=== PATIENT | female | born 1990 | race Caucasian/White ===

== ENCOUNTER 2016-03-01 10:12 | Emergency (ER) | payer OTHER ==
[~2016-03-01] VITALS: Ht 162.6 cm; Wt 90.0 kg
[~2016-03-01 10:12] MED LIST: CARAS PO; CIPR500T4 PO; PANT40TA3 PO; SENN-36 PO; ULT50 PO
[2016-03-01 10:17] VITALS: Ht 162.6 cm; Wt 90.0 kg
[2016-03-01] MEDS ORDERED: BELLADONNA/PHENOBARBITAL TAB PO STA (10:44)
[2016-03-01] MEDS ORDERED: ONDANSETRON 4 MG INJ IV STA (10:44)
--- NOTE | 2016-03-01 10:56 | ERD ---
ER Documentation Chief Complaint Date/Time DATE: 03/01/16 TIME: 10:54 Chief Complaint MID ABD PAIN WITH VOMITING SINCE MORNING HPI This is a 25-year-old female presents to the ER with epigastric pain that started yesterday. Per patient epigastric pain has gotten significantly worse and she has nausea and vomiting. Vomiting is nonbilious nonbloody. Patient states that her stools were soft this morning however denies diarrhea. Patient has had this in the past and was told she had an infection. Patient's pain does not radiate anywhere it feels as if someone is "punching her" patient denies any fevers or chills. She denies any urinary frequency or dysuria. Patient has not tried anything for the pain. Her appetite has been decreased. There are no sick contacts at home ROS 12 point review of systems was done, all negative except per HPI. Medications Home Meds Active Scripts Tramadol HCl (Tramadol HCl) 50 Mg Tablet, 50 MG PO Q6 Y for PAIN, #10 TAB Prov:SEYMOUR FISHER 03/01/16 Tramadol Hcl* (Tramadol* ER) 100 Mg Tab.er.24h, 100 MG PO DAILY, #30 TAB Prov:SEYMOUR FISHER 03/01/16 Ondansetron Hcl* (Zofran*) 4 Mg Tablet, 4 MG PO Q6H for NAUSEA AND/OR VOMITING, #30 TAB Prov:SEYMOUR FISHER 03/01/16 Famotidine* (Pepcid*) 20 Mg Tablet, 20 MG PO BID for 14 Days, TAB Prov:SEYMOUR FISHER 03/01/16 Tramadol HCl (Tramadol HCl) 50 Mg Tablet, 50 MG PO Q6H Y for PAIN, #20 TAB Prov:NICO ACOSTA 05/26/15 Sennosides* (Senokot*) 1 Tab Tab, 2 TAB PO BID for 20 Days, TAB Prov:NICO ACOSTA 05/26/15 Sucralfate* (Carafate* (Pediatric)) 1 Gm/10 Ml Susp, 1 GM PO QID for 30 Days Prov:NICO ACOSTA 05/26/15 Pantoprazole* (Protonix*) 40 Mg Tablet.dr, 40 MG PO BID for 30 Days, TAB Prov:NICO ACOSTA 05/26/15 Ciprofloxacin Hcl* (Ciprofloxacin Hcl*) 500 Mg Tablet, 500 MG PO BID for 7 Days , TAB Prov:NICO ACOSTA 05/26/15 Allergies Allergies: Coded Allergies: No Known Allergy (Unverified , 05/22/15) PMhx/Soc History of Surgery: Yes (2 C-sections, gallstones removed) Anesthesia Reaction: No Hx Neurological Disorder: No Hx Respiratory Disorders: No Hx Cardiac Disorders: No Hx Psychiatric Problems: No Hx Alcohol Use: No Hx Substance Use: No Hx Tobacco Use: No Physical Exam Vitals Vital Signs Date Time Temp Pulse Resp B/P Pulse Ox O2 Delivery O2 Flow Rate FiO2 03/01/16 10:17 98.1 78 20 104/54 98 Physical Exam GENERAL: The patient is well developed and appropriate for usual state of health , in no apparent distress. HEENT: Atraumatic. CHEST: Clear to auscultation bilaterally. There are no rales, wheezes or rhonchi. HEART: Regular rate and rhythm. No murmurs, clicks, rubs or gallops. ABDOMEN: Soft, nontender and nondistended. Good bowel sounds. No rebound or guarding. No gross peritonitis. No gross organomegaly or masses. No Elkins sign or McBurney point tenderness. Tender to palpation in the epigastric area BACK: No CVA tenderness EXTREMITIES: Full range of motion. Grossly neurovascularly intact. NEURO: Alert and oriented. Result Diagram: 03/01/16 1113 03/01/16 1113 Results 24 hrs Laboratory Tests Test 03/01/16 11:13 Alanine Aminotransferase (ALT/SGPT) 28IU/L Albumin 4.0g/dl Albumin/Globulin Ratio 0.97 Alkaline Phosphatase 105IU/L Anion Gap 17 Aspartate Amino Transf (AST/SGOT) 33IU/L Basophils # 0.010^3/ul Basophils % 0.3% Blood Urea Nitrogen 10mg/dl Calcium Level 8.4mg/dl Carbon Dioxide Level 24mmol/L Chloride Level 104mmol/L Creatinine 0.57mg/dl Direct Bilirubin 0.00mg/dl Eosinophils # 0.110^3/ul Eosinophils % 0.8% Globulin 4.10g/dl Glucose Level 109mg/dl Hematocrit 39.1% Hemoglobin 13.1g/dl Indirect Bilirubin 0.5mg/dl Lipase 65U/L Lymphocytes # 1.110^3/ul Lymphocytes % 14.0% Mean Corpuscular Hemoglobin 30.6pg Mean Corpuscular Hemoglobin Concent 33.5g/dl Mean Corpuscular Volume 91.4fl Mean Platelet Volume 9.7fl Monocytes # 0.410^3/ul Monocytes % 4.7% Neutrophils # 6.410^3/ul Neutrophils % 80.2% Nucleated Red Blood Cells # 0.010^3/ul Nucleated Red Blood Cells % 0.0/100WBC Platelet Count 72569^3/UL Potassium Level 3.8mmol/L Red Blood Count 4.2810^6/ul Red Cell Distribution Width 13.1% Sodium Level 141mmol/L Total Bilirubin 0.5mg/dl Total Protein 8.1g/dl Urine Bacteria FEW Urine Bilirubin NEGATIVE Urine Clarity CLEAR Urine Color LT. YELLOW Urine Epithelial Cells FEW Urine Glucose NEGATIVE% Urine Hemoglobin 3+ Urine Ketones NEGATIVE Urine Leukocyte Esterase TRACE Urine Microscopic RBC 5-10/HPF Urine Microscopic WBC 0-2/HPF Urine Nitrite NEGATIVE Urine Specific [place] 1.025 Urine Total Protein NEGATIVE Urine Urobilinogen 0.2 E.U./dL Urine pH 5.5 White Blood Count 8.010^3/ul Current Medications Medications (Trade) Dose Ordered Sig/Davy Route PRN Reason Start Time Stop Time Status Last Admin Dose Admin Famotidine (Pepcid Iv) 20 mg ONCE ONCE IV 03/01/16 11:00 03/01/16 11:01 DC 03/01/16 11:16 Ondansetron HCl 4 mg 4 mg ONCE STAT IV 03/01/16 10:44 03/01/16 10:47 DC 03/01/16 11:16 Sodium Chloride (NS) 1,000 ml @ 1,000 mls/hr Q1H ONCE IV 03/01/16 11:00 03/01/16 11:59 DC 03/01/16 11:15 Miscellaneous Medication (Gi Cocktail (2)) 40 ml ONCE ONCE PO 03/01/16 11:00 03/01/16 11:01 DC 03/01/16 11:16 Belladonna/ Phenobarbital () 2 tab ONCE STAT PO 03/01/16 10:44 03/01/16 10:47 DC 03/01/16 11:16 Procedures/MDM Differential Diagnosis: GERD, gastritis, peptic ulcer disease, pancreatitis, cholecystitis, choledocholithiasis, biliary colic, cholangitis, [id number] , ACS/MA, Pnuemonia . This is a 25-year-old female presents to the ER with epigastric pain. I doubt gallbladder disease as patient's gallbladder has already been taken out. I doubt pancreatitis as her lipase is normal. Patient' s is afebrile and well-appearing, she does not appear dehydrated. patient has denied chest pain shortness of breath I doubt cardiac or intrathoracic abnormality. Patient will be sent home with famotidine, tramadol, Zofran. She is to follow-up with her primary care doctor within 1-2 days return to ER sooner if symptoms worsen. My medical decision making shared with the patient understands and agrees with plan. Departure Diagnosis: Primary Impression: Epigastric pain Condition: Stable SEYMOUR FISHER Mar 01, 2016 10:56
[2016-03-01] MEDS ORDERED: FAMOTIDINE 20 MG INJ IV ONE (11:00)
[2016-03-01] MEDS ORDERED: LIDOCAINE/MYLANTA 40 ML BTL PO ONE (11:00)
[2016-03-01] MEDS ORDERED: SOD CHLORIDE 0.9% 1,000 ML IV ONE (11:00)
[2016-03-01 11:40] LABS: POTASSIUM 3.8 mmol/L (3.5-5.1)
[2016-03-01 11:42] LABS: ALBUMIN/GLOBULIN RATIO 0.97; BILIRUBIN,INDIRECT 0.5 mg/dl (0-1.1); BILIRUBIN,TOTAL 0.5 mg/dl (0.2-1.3); CREATININE 0.57 mg/dl (0.44-1.00); TOTAL PROTEIN 8.1 g/dl (6.1-8.1)
[2016-03-01 11:43] LABS: CALCIUM 8.4 mg/dl (8.4-10.2)
[2016-03-01 11:47] LABS: BASOPHILS % 0.3 % (0.0-2.0); EOSINOPHILS # 0.1 10^3/ul (0.0-0.5); EOSINOPHILS % 0.8 % (0.0-7.0); HEMATOCRIT 39.1 % (37.0-47.0); HEMOGLOBIN 13.1 g/dl (12.0-16.0); LYMPHOCYTES # 1.1 10^3/ul (0.8-2.9); MEAN CORPUSCULAR HEMOGLOBIN 30.6 pg (29.0-33.0); MEAN CORPUSCULAR HGB CONC 33.5 g/dl (32.0-37.0); MEAN CORPUSCULAR VOLUME 91.4 fl (82.0-101.0); MEAN PLATELET VOLUME 9.7 fl (7.4-10.4); MONOCYTE # 0.4 10^3/ul (0.3-0.9); MONOCYTES % 4.7 % (0.0-11.0); NEUTROPHIL # 6.4 10^3/ul (1.6-7.5); NEUTROPHILS % 80.2 % (39.0-77.0); PLATELET COUNT 214 10^3/UL (140-440); RED BLOOD COUNT 4.28 10^6/ul (4.20-5.40); RED CELL DISTRIBUTION WIDTH 13.1 % (11.5-14.5)
[2016-03-01 11:51] LABS: ADD UMIC YES; URINE BILIRUBIN (Dip) NEGATIVE (NEGATIVE); URINE BLOOD (Dip) 3+ (NEGATIVE); URINE COLOR LT. YELLOW (YELLOW); URINE GLUCOSE (Dip) NEGATIVE (NEGATIVE); URINE KETONES (Dip) NEGATIVE (NEGATIVE); URINE LEUKOCYTE ESTERASE (Dip) TRACE (NEGATIVE); URINE NITRITE (Dip) NEGATIVE (NEGATIVE); URINE TOTAL PROTEIN (Dip) NEGATIVE (NEGATIVE); URINE UROBILINOGEN (Dip) 0.2 E.U./dL (0.1-1.0)
[2016-03-01 11:55] LABS: CONDITION 1
[2016-03-01] MEDS ORDERED: FAMO-18 PO (12:46)
[2016-03-01] MEDS ORDERED: ONDA4TAB8 PO (12:46)
[2016-03-01] MEDS ORDERED: TRAM100T27 PO (12:47)
[2016-03-01] MEDS ORDERED: TRAM50TA2 PO (12:47)
[2016-03-01 12:50] LABS: BACTERIA,URINE FEW
== END 2016-03-01 13:08 | disposition home or self-care (01) ==
LOC: FTE 10:12
DX: R10.13 Epigastric pain (principal); R11.2 Nausea with vomiting, unspecified
CPT/HCPCS: 80053; 81001; 83690; 85025; J2405; J7030; Z7610; 36415; 81003; 96374; 96375

== ENCOUNTER 2016-05-17 22:22 | Emergency (ER) | payer OTHER ==
[~2016-05-17] VITALS: Ht 162.6 cm; Wt 92.0 kg
[~2016-05-17 22:22] MED LIST changes: +FAMO-18 PO; +ONDA4TAB8 PO; +TRAM100T27 PO; +TRAM50TA2 PO; -ULT50 PO
[2016-05-17 22:23] VITALS: Ht 162.6 cm; Wt 92.0 kg
[2016-05-18] MEDS ORDERED: ONDANSETRON (ODT) 4 MG TAB ODT STA (00:46)
[2016-05-18] MEDS ORDERED: DIAZEPAM 5 MG TAB PO ONE (01:00)
[2016-05-18] MEDS ORDERED: LIDOCAINE/MYLANTA 40 ML BTL PO ONE (01:00)
[2016-05-18] MEDS ORDERED: PANTOPRAZOLE (EC) 40 MG TAB PO ONE (01:00)
--- NOTE | 2016-05-18 01:31 | ERD ---
ER Documentation Chief Complaint Date/Time DATE: 05/18/16 TIME: 01:21 Chief Complaint ABDOMINAL PAIN WITH N/V STARTING TODAY HPI 25-year-old female presenting to emergency department today with epigastric pain since 11 AM. Patient reports the pain is sharp sharp and cramping. Patient reports nothing makes her stomach feel better, states she has not eaten today has drink green tea with little relief of symptoms. She reports nausea, denies vomiting, fever, chills. Denies diarrhea, dysuria. Patient reports history of gastritis and has a appointment with a industrial electrical engineer later this month. Patient currently has never tried any H2 arpit or proton pump inhibitor for symptoms. Patient denies shortness of breath, chest pain, palpitations, or dizziness. ROS All systems reviewed and are negative except as per history of present illness. Medications Home Meds Active Scripts Tramadol HCl (Tramadol HCl) 50 Mg Tablet, 50 MG PO Q6 Y for PAIN, #10 TAB Prov:SEYMOUR FISHER 03/01/16 Tramadol Hcl* (Tramadol* ER) 100 Mg Tab.er.24h, 100 MG PO DAILY, #30 TAB Prov:SEYMOUR FISHER 03/01/16 Ondansetron Hcl* (Zofran*) 4 Mg Tablet, 4 MG PO Q6H for NAUSEA AND/OR VOMITING, #30 TAB Prov:SEYMOUR FISHER 03/01/16 Famotidine* (Pepcid*) 20 Mg Tablet, 20 MG PO BID for 14 Days, TAB Prov:SEYMOUR FISHER 03/01/16 Tramadol HCl (Tramadol HCl) 50 Mg Tablet, 50 MG PO Q6H Y for PAIN, #20 TAB Prov:NICO ACOSTA 05/26/15 Sennosides* (Senokot*) 1 Tab Tab, 2 TAB PO BID for 20 Days, TAB Prov:NICO ACOSTA 05/26/15 Sucralfate* (Carafate* (Pediatric)) 1 Gm/10 Ml Susp, 1 GM PO QID for 30 Days Prov:NICO ACOSTA 05/26/15 Pantoprazole* (Protonix*) 40 Mg Tablet.dr, 40 MG PO BID for 30 Days, TAB Prov:NICO ACOSTA 05/26/15 Ciprofloxacin Hcl* (Ciprofloxacin Hcl*) 500 Mg Tablet, 500 MG PO BID for 7 Days , TAB Prov:NICO ACOSTA 05/26/15 Allergies Allergies: Coded Allergies: No Known Allergy (Unverified , 05/22/15) PMhx/Soc History of Surgery: Yes (2 C-sections, CHOLECYSTECTOMY) Anesthesia Reaction: No Hx Neurological Disorder: No Hx Respiratory Disorders: No Hx Cardiac Disorders: No Hx Psychiatric Problems: No Hx Alcohol Use: No Hx Substance Use: No Hx Tobacco Use: No Physical Exam Vitals Vital Signs Date Time Temp Pulse Resp B/P Pulse Ox O2 Delivery O2 Flow Rate FiO2 05/17/16 22:23 98.2 88 18 129/87 98 Vitals stable, triage notes reviewed Physical Exam Const: No acute distress Head: Eyes: Normal Conjunctiva no jaundice, pallor, EOMI, PERRLA ENT: Normal External Ears, Nose and Mouth. Mucous membranes moist Neck: Resp: Cardio: Abd: Obese abdomen, soft to palpation, dull to percussion. Epigastric tenderness, Elkins sign negative, nontender McBurney's point, no CVA tenderness Skin: Back: No midline or flank tenderness Ext: Neur: Awake and alert Psych: Normal Mood and Affect Results 24 hrs Current Medications Medications (Trade) Dose Ordered Sig/Davy Route PRN Reason Start Time Stop Time Status Last Admin Dose Admin Miscellaneous Medication (Gi Cocktail (2)) 40 ml ONCE ONCE PO 05/18/16 01:00 05/18/16 01:01 DC 05/18/16 01:10 Pantoprazole (Protonix Tab) 40 mg ONCE ONCE PO 05/18/16 01:00 05/18/16 01:01 DC 05/18/16 01:10 Ondansetron HCl (Zofran Odt) 4 mg ONCE STAT ODT 05/18/16 00:46 05/18/16 00:48 DC 05/18/16 01:11 Diazepam (Valium) 5 mg ONCE ONCE PO 05/18/16 01:00 05/18/16 01:01 DC 05/18/16 01:11 Procedures/MDM Pleasant 25-year-old female presenting to emergency department with epigastric pain, nausea without vomiting, differential diagnosis includes appendicitis, pancreatitis, cholelithiasis. Gastroesophageal reflux disease. Physical exam and history do not support appendicitis pancreatitis or cholelithiasis. Patient is nontender at McBurney's point. Pain isolated to epigastric region, negative Elkins sign. Peptic ulcer disease is probable, but without complaint of blood in stool will not be further investigated at this time. Patient has appointment with industrial electrical engineer for evaluation of gastritis. Nurse practitioner with treat symptoms today with GI cocktail, Valium, Protonix and Zofran. Patient reassessed after 60 minutes reports improvement in symptoms. I feel patient is suitable for outpatient management and follow-up with industrial electrical engineer as planned. Return to emergency room for blood in stool, worsening of abdominal pain, nausea or vomiting. I feel the patient is stable for discharge at this time. I have discussed results, examination findings, the treatment plan with the patient and family present prior to discharge. Indications for emergent reevaluation, side effects of medication were also discussed. All questions were answered. Patient verbalizes understanding and agrees with plan of care. Departure Patient Instructions: [facility] (Adult) Referrals: [facility] Additional Instructions: Thank you for for coming to [facility] for your care today. Please ask your nurse or provider if you have questions about your care today and do not leave until all your questions have been answered. Please use any medications given as directed and follow-up with your doctor (or the doctor you were referred to) in the next 2-3 days. If you do not have a primary care doctor you may follow up at the [facility] (listed below). You may also use motrin and tylenol as needed for fever and/or pain unless instructed otherwise by your provider or nurse. Indications for more urgent follow-up have been discussed, but you may return to the Emergency Department at ANY time for any worrisome or worsening symptoms. If you have abdominal pain, please know that no test or exam you received is perfect and you should follow up within 8 hours for continued pain. If you had any imaging studies today, such as an X-Ray or CT Scan, these studies will be reviewed later by a radiologist. You will be called if there are important findings that were not identified today, so make sure the contact information you provided at registration is correct. If you received any narcotic pain control medicine today, such as Vicodin, Morphine or Dilaudid, your coordination and judgment may be affected for a number of hours. Please do not drive or operate heavy machinery, and you may want someone to assist you at home. If you were given a prescription for narcotic medication, be aware that it is very addictive- use sparingly and only if necessary. VIVIAN CARLOS May 18, 2016 01:31
[2016-05-18] MEDS ORDERED: RANI150T9 PO (01:33)
[2016-05-18] MEDS ORDERED: ONDA4TAB14 PO (02:08)
[2016-05-18] MEDS ORDERED: HYDR-906 PO (02:08)
== END 2016-05-18 02:27 | disposition home or self-care (01) ==
LOC: FTE 22:22
DX: R10.13 Epigastric pain (principal); R11.2 Nausea with vomiting, unspecified
CPT/HCPCS: Z7502; Z7610; 99284

== ENCOUNTER 2016-05-22 02:41 | Emergency (ER) | payer OTHER ==
[~2016-05-22] VITALS: Ht 162.6 cm; Wt 91.5 kg
[~2016-05-22 02:41] MED LIST changes: +HYDR-906 PO; +ONDA4TAB14 PO; +RANI150T9 PO
[2016-05-22 02:45] VITALS: Ht 162.6 cm; Wt 91.5 kg
[2016-05-22] MEDS ORDERED: morphine 4 MG/ML VIAL ONE (04:13)
[2016-05-22] MEDS ORDERED: DICYCLOMINE 10 MG CAP PO ONE (04:30)
[2016-05-22] MEDS ORDERED: PANTOPRAZOLE (EC) 40 MG TAB PO ONE (04:30)
--- NOTE | 2016-05-22 04:38 | ERD ---
ER Documentation Chief Complaint Date/Time DATE: 05/22/16 TIME: 04:33 Chief Complaint abd pain x 1 day, just got dc'd from [facility] x 30 minutes ago HPI Patient is a 25-year-old female who presents with acute onset of severe epigastric pain for 30 minutes. The patient has a history for greater than 1 year by report, and at least 4 years by chart review of recurrent episodes of epigastric pain. She has not seen a rack cleaner, but has an appointment for June 02. She has been having intermittent episodes for the last several days and went to [facility] earlier today. She is given medication at [facility], and reports that her pain resolved by the time she left the hospital. However, after she left the hospital she had a recurrence of symptoms. She reports 4 episodes of vomiting, no diarrhea, no fever. No radiation to the back or chest. Patient is currently taking [place], but states that this is the first time she is taking [place]. Last menstrual period was on Monday. ROS All systems reviewed and are negative except as per history of present illness. Medications Home Meds Active Scripts Hydrocodone/Acetaminophen ([place] 5-325 Tablet) 1 Each Tablet, 1 TAB PO Q6H Y for PAIN, #7 TAB Prov:BREANNA,VIVIAN 05/18/16 Ondansetron (Ondansetron Odt) 4 Mg Tab.rapdis, 4 MG PO Q6H Y for NAUSEA AND/OR VOMITING, #10 TAB Prov:BREANNA,VIVIAN 05/18/16 Ranitidine Hcl* (Zantac*) 150 Mg Tablet, 150 MG PO BID Y for EPIGASTRIC PAIN, # 30 TAB Prov:BREANNA,VIVIAN 05/18/16 Tramadol HCl (Tramadol HCl) 50 Mg Tablet, 50 MG PO Q6 Y for PAIN, #10 TAB Prov:NATALIAELIZABETHSEYMOUR C 03/01/16 Tramadol Hcl* (Tramadol* ER) 100 Mg Tab.er.24h, 100 MG PO DAILY, #30 TAB Prov:NATALIASEYMOUR C 03/01/16 Ondansetron Hcl* (Zofran*) 4 Mg Tablet, 4 MG PO Q6H for NAUSEA AND/OR VOMITING, #30 TAB Prov:NATALIASEYMOUR FLORIAN C 03/01/16 Famotidine* (Pepcid*) 20 Mg Tablet, 20 MG PO BID for 14 Days, TAB Prov:SEYMOUR FISHER 03/01/16 Tramadol HCl (Tramadol HCl) 50 Mg Tablet, 50 MG PO Q6H Y for PAIN, #20 TAB Prov:ROB ACOSTANELL 05/26/15 Sennosides* (Senokot*) 1 Tab Tab, 2 TAB PO BID for 20 Days, TAB Prov:REGCANELORNICO 05/26/15 Sucralfate* (Carafate* (Pediatric)) 1 Gm/10 Ml Susp, 1 GM PO QID for 30 Days Prov:REGCANELORNICO 05/26/15 Pantoprazole* (Protonix*) 40 Mg Tablet.dr, 40 MG PO BID for 30 Days, TAB Prov:YANETHRNICO 05/26/15 Ciprofloxacin Hcl* (Ciprofloxacin Hcl*) 500 Mg Tablet, 500 MG PO BID for 7 Days , TAB Prov:COURTNEYIDORNICO 05/26/15 Allergies Allergies: Coded Allergies: No Known Allergy (Unverified , 05/22/16) PMhx/Soc Past medical history: Chronic abdominal pain Past surgical history: 2, cholecystectomy Social history: Denies alcohol or tobacco. History of Surgery: Yes (2 C-sections, CHOLECYSTECTOMY) Anesthesia Reaction: No Hx Neurological Disorder: No Hx Respiratory Disorders: No Hx Cardiac Disorders: No Hx Psychiatric Problems: No Hx Alcohol Use: No Hx Substance Use: No Hx Tobacco Use: No FmHx Family History: No coronary disease, No diabetes Physical Exam Vitals Vital Signs Date Time Temp Pulse Resp B/P Pulse Ox O2 Delivery O2 Flow Rate FiO2 05/22/16 05:42 66 16 111/66 99 Room Air 05/22/16 02:45 99.3 90 20 112/56 98 Physical Exam Const: Alert, in mild distress Head: Atraumatic Eyes: Normal Conjunctiva, no pallor or icterus ENT: Normal External Ears, Nose and Mouth. Mucous membranes moist Neck: Full range of motion. No meningismus. Resp: Clear to auscultation bilaterally, no wheezes, rales Cardio: Regular rate and rhythm, no murmurs Abd: Soft, tender in epigastrium, no guarding, no rebound, non distended. Skin: No petechiae or rashes Back: No midline or flank tenderness Ext: No cyanosis, or edema Neur: Awake and alert, cranial nerves II through XII intact bilaterally, moves and feels 4 extremities appropriately. Psych: Normal Mood and Affect Result Diagram: 05/22/1644405/22/16444 Results 24 hrs Laboratory Tests Test 05/22/16 04:45 White Blood Count 10.810^3/ul Red Blood Count 4.4310^6/ul Hemoglobin 13.8g/dl Hematocrit 40.6% Mean Corpuscular Volume 91.6fl Mean Corpuscular Hemoglobin 31.2pg Mean Corpuscular Hemoglobin Concent 34.0g/dl Red Cell Distribution Width 12.4% Platelet Count 10646^3/UL Mean Platelet Volume 11.4fl Neutrophils % 86.1% Lymphocytes % 8.7% Monocytes % 4.4% Eosinophils % 0.3% Basophils % 0.2% Nucleated Red Blood Cells % 0.0/100WBC Neutrophils # 9.310^3/ul Lymphocytes # 0.910^3/ul Monocytes # 0.510^3/ul Eosinophils # 0.010^3/ul Basophils # 0.010^3/ul Nucleated Red Blood Cells # 0.010^3/ul Urine Color LT. YELLOW Urine Clarity CLEAR Urine pH 7.5 Urine Specific [place] 1.015 Urine Ketones TRACE Urine Nitrite NEGATIVE Urine Bilirubin NEGATIVE Urine Urobilinogen 0.2 E.U./dL Urine Leukocyte Esterase NEGATIVE Urine Microscopic RBC 0-2/HPF Urine Microscopic WBC 5-10/HPF Urine Squamous Epithelial Cells OCCASIONAL Urine Bacteria OCCASIONAL Urine Hemoglobin 2+ Urine Glucose NEGATIVE% Urine Total Protein NEGATIVE Sodium Level 142mmol/L Potassium Level 3.8mmol/L Chloride Level 103mmol/L Carbon Dioxide Level 24mmol/L Anion Gap 19 Blood Urea Nitrogen 11mg/dl Creatinine 0.63mg/dl Glucose Level 121mg/dl Calcium Level 8.9mg/dl Total Bilirubin 1.4mg/dl Direct Bilirubin 0.00mg/dl Indirect Bilirubin 1.4mg/dl Aspartate Amino Transf (AST/SGOT) 70IU/L Alanine Aminotransferase (ALT/SGPT) 39IU/L Alkaline Phosphatase 112IU/L Total Protein 8.8g/dl Albumin 4.6g/dl Globulin 4.20g/dl Albumin/Globulin Ratio 1.09 Lipase 576U/L Serum HCG, Qualitative NEGATIVE Current Medications Medications (Trade) Dose Ordered Sig/Davy Route PRN Reason Start Time Stop Time Status Last Admin Dose Admin Morphine Sulfate (morphine) 4 mg STK-MED ONCE .ROUTE 05/22/16 04:13 05/22/16 04:14 DC Dicyclomine HCl (Bentyl) 20 mg ONCE ONCE PO 05/22/16 04:30 05/22/16 04:32 DC 05/22/16 04:53 Pantoprazole (Protonix Tab) 40 mg ONCE ONCE PO 05/22/16 04:30 05/22/16 04:32 DC 05/22/16 04:53 Miscellaneous Medication (Gi Cocktail (2)) 40 ml ONCE ONCE PO 05/22/16 06:00 05/22/16 06:01 DC 05/22/16 05:51 Procedures/MDM EKG read by me: Time 454, rate 77 Rhythm: Normal sinus [place]: Normal Intervals: Normal ST-T waves: no ischemic changes Ectopy: No Q-waves: No Impression: No evidence of ischemia or arrhythmia MDM: Patient is a 25-year-old female who is status post cholecystectomy for several years who presents with recurrent episodes of epigastric pain for more than 1 year. The patient has had multiple visits to different ERs with the same symptoms. She has been noted to have slightly elevated lipase on occasion , but not more than 3 times the upper limit of normal. She has had no dark stools or vomiting. She was seen earlier today at [facility], and her pain was resolved with a GI cocktail, but it returned shortly after leaving the hospital. In the ER she was given another GI cocktail and symptoms were improved. She has a prescription for [place] for use at home. She does not have an acute abdomen on exam, no evidence for pancreatitis despite slightly elevated lipase, no evidence of UTI. Given chronicity of symptoms, I do not believe that she needs emergent workup at this time, and the patient has an appointment with a rack cleaner for upper GI endoscopy. I have advised her to eat a liquid diet, and advance slowly, and return to the ER for severe pain, vomiting, or other symptoms. I have advised her to call her rack cleaner on Monday morning to attempt to obtain an expedited appointment given her need for multiple ER visits. At the time of discharge, the patient appeared well, had stable vital signs and pain was significantly improved. Departure Diagnosis: Primary Impression: Epigastric pain Condition: Stable JORDAN FALCON MD May 22, 2016 04:38
[2016-05-22 05:18] LABS: ADD SCAN DIFF NO
[2016-05-22 05:20] LABS: ADD UMIC YES; URINE BILIRUBIN (Dip) NEGATIVE (NEGATIVE); URINE BLOOD (Dip) 2+ (NEGATIVE); URINE COLOR LT. YELLOW (YELLOW); URINE GLUCOSE (Dip) NEGATIVE (NEGATIVE); URINE KETONES (Dip) TRACE (NEGATIVE); URINE LEUKOCYTE ESTERASE (Dip) NEGATIVE (NEGATIVE); URINE NITRITE (Dip) NEGATIVE (NEGATIVE); URINE TOTAL PROTEIN (Dip) NEGATIVE (NEGATIVE); URINE UROBILINOGEN (Dip) 0.2 E.U./dL (0.1-1.0)
[2016-05-22 05:21] LABS: BASOPHILS % 0.2 % (0.0-2.0); EOSINOPHILS % 0.3 % (0.0-7.0); HEMATOCRIT 40.6 % (37.0-47.0); HEMOGLOBIN 13.8 g/dl (12.0-16.0); LYMPHOCYTES # 0.9 10^3/ul (0.8-2.9); LYMPHOCYTES % 8.7 % (15.0-51.0); MEAN CORPUSCULAR HEMOGLOBIN 31.2 pg (29.0-33.0); MEAN CORPUSCULAR VOLUME 91.6 fl (82.0-101.0); MEAN PLATELET VOLUME 11.4 fl (7.4-10.4); MONOCYTE # 0.5 10^3/ul (0.3-0.9); MONOCYTES % 4.4 % (0.0-11.0); NEUTROPHIL # 9.3 10^3/ul (1.6-7.5); NEUTROPHILS % 86.1 % (39.0-77.0); PLATELET COUNT 226 10^3/UL (140-415); RED BLOOD COUNT 4.43 10^6/ul (4.20-5.40); RED CELL DISTRIBUTION WIDTH 12.4 % (11.5-14.5); WHITE BLOOD COUNT 10.8 10^3/ul (4.8-10.8)
[2016-05-22 05:27] LABS: BACTERIA,URINE OCCASIONAL; SQUAMOUS EPITHELIAL CELL,UR OCCASIONAL; URINE RBCS 0-2 /HPF (0)
[2016-05-22 05:42] VITALS: BP 111/66; PULSE 66; RESP 16
[2016-05-22 05:43] LABS: ALBUMIN 4.6 g/dl (3.3-4.9); POTASSIUM 3.8 mmol/L (3.5-5.1)
[2016-05-22 05:45] LABS: ALBUMIN/GLOBULIN RATIO 1.09; BILIRUBIN,INDIRECT 1.4 mg/dl (0-1.1); BILIRUBIN,TOTAL 1.4 mg/dl (0.2-1.3); CREATININE 0.63 mg/dl (0.44-1.00); TOTAL PROTEIN 8.8 g/dl (6.1-8.1)
[2016-05-22 05:46] LABS: CALCIUM 8.9 mg/dl (8.4-10.2)
[2016-05-22] MEDS ORDERED: LIDOCAINE/MYLANTA 40 ML BTL PO ONE (06:00)
== END 2016-05-22 06:38 | disposition home or self-care (01) ==
LOC: E/R 02:41
DX: R10.13 Epigastric pain (principal); R40.2142 Coma scale, eyes open, spontaneous, at arrival to emergency department; R40.2252 Coma scale, best verbal response, oriented, at arrival to emergency department; R40.2362 Coma scale, best motor response, obeys commands, at arrival to emergency department
CPT/HCPCS: 80053; 81001; 83690; 84703; 85025; 93005; J2270; Z7610; 36415; 81003

== ENCOUNTER 2016-11-26 19:11 | Emergency (ER) | payer OTHER ==
[~2016-11-26] VITALS: Ht 167.6 cm; Wt 93.0 kg
[~2016-11-26 19:11] MED LIST changes: -FAMO-18 PO; +FAMO-96 PO
[2016-11-26 19:14] VITALS: Ht 167.6 cm; Wt 93.0 kg
[2016-11-26] MEDS ORDERED: FAMOTIDINE 20 MG INJ IV STA (19:37)
[2016-11-26] MEDS ORDERED: LIDOCAINE/MYLANTA 40 ML BTL PO STA (19:37)
[2016-11-26 20:22] LABS: URINE BLOOD (Dip) POC 1+ (NEGATIVE)
--- NOTE | 2016-11-26 20:32 | ERD ---
ER Documentation Chief Complaint Date/Time DATE: 11/26/16 TIME: 20:16 Chief Complaint upper abd pain x 1 day HPI This is a 26-year-old female, with past medical history for gastritis and cholecystectomy, presenting to the emergency department with epigastric pain starting earlier today around 11 AM. Patient rates pain 10/10 and states it feels like a pressure. Patient states when the pain initially started it was intermittent and worsening. Now, patient states pain is constant. No fevers or chills. No nausea or vomiting. Patient states ingestion of food worsens pain. No alleviating factors. No chest pain shortness of breath or difficulty breathing. Patient states she is currently being seen by property developer and was prescribed ranitidine. Patient took ranitidine earlier today which did not improve her pain. ROS All systems reviewed and are negative except as per history of present illness. Medications Home Meds Active Scripts Famotidine* (Pepcid*) 20 Mg Tablet, 20 MG PO BID for 4 Days, TAB Prov:EMILEE WHEELER NP 11/26/16 Hydrocodone/Acetaminophen ([place] 5-325 Tablet) 1 Each Tablet, 1 TAB PO Q6H Y for PAIN, #7 TAB Prov:BREANNA,VIVIAN 05/18/16 Ondansetron (Ondansetron Odt) 4 Mg Tab.rapdis, 4 MG PO Q6H Y for NAUSEA AND/OR VOMITING, #10 TAB Prov:BREANNA,VIVIAN 05/18/16 Ranitidine Hcl* (Zantac*) 150 Mg Tablet, 150 MG PO BID Y for EPIGASTRIC PAIN, # 30 TAB Prov:BREANNA,VIVIAN 05/18/16 Tramadol HCl (Tramadol HCl) 50 Mg Tablet, 50 MG PO Q6 Y for PAIN, #10 TAB Prov:NATALIAELIZABETHSEYMOUR C 03/01/16 Tramadol Hcl* (Tramadol* ER) 100 Mg Tab.er.24h, 100 MG PO DAILY, #30 TAB Prov:NATALIASEYMOUR C 03/01/16 Ondansetron Hcl* (Zofran*) 4 Mg Tablet, 4 MG PO Q6H for NAUSEA AND/OR VOMITING, #30 TAB Prov:NATALIA,SEYMOUR C 03/01/16 Famotidine* (Pepcid*) 20 Mg Tablet, 20 MG PO BID for 14 Days, TAB Prov:NATALIA,SEYMOUR C 03/01/16 Tramadol HCl (Tramadol HCl) 50 Mg Tablet, 50 MG PO Q6H Y for PAIN, #20 TAB Prov:COURTNEYCANELOShannonNICO 05/26/15 Sennosides* (Senokot*) 1 Tab Tab, 2 TAB PO BID for 20 Days, TAB Prov:DAVENICO 05/26/15 Sucralfate* (Carafate* (Pediatric)) 1 Gm/10 Ml Susp, 1 GM PO QID for 30 Days Prov:DAVENICO 05/26/15 Pantoprazole* (Protonix*) 40 Mg Tablet.dr, 40 MG PO BID for 30 Days, TAB Prov:DAVENICO 05/26/15 Ciprofloxacin Hcl* (Ciprofloxacin Hcl*) 500 Mg Tablet, 500 MG PO BID for 7 Days , TAB Prov:COURTNEYWRARENNICO 05/26/15 Allergies Allergies: Coded Allergies: No Known Allergy (Unverified , 05/22/16) PMhx/Soc History of Surgery: Yes (2 C-sections, CHOLECYSTECTOMY) Anesthesia Reaction: No Hx Neurological Disorder: No Hx Respiratory Disorders: No Hx Cardiac Disorders: No Hx Psychiatric Problems: No Hx Alcohol Use: No Hx Substance Use: No Hx Tobacco Use: No Smoking Status: Never smoker Physical Exam Vitals Vital Signs Date Time Temp Pulse Resp B/P Pulse Ox O2 Delivery O2 Flow Rate FiO2 11/26/16 22:08 97.9 68 20 110/65 100 Room Air 11/26/16 19:14 98.7 71 20 109/61 100 Physical Exam Const: No acute distress, alert Head: Atraumatic Eyes: Normal Conjunctiva ENT: Normal External Ears, Nose and Mouth. Neck: Full range of motion..~ No meningismus. Resp: Clear to auscultation bilaterally Cardio: Regular rate and rhythm, no murmurs Abd: Soft, non tender, non distended. Normal bowel sounds Skin: No petechiae or rashes Back: No midline or flank tenderness Ext: No cyanosis, or edema Neur: Awake and alert Psych: Normal Mood and Affect Result Diagram: 11/26/16203811/26/162038 Results 24 hrs Laboratory Tests Test 11/26/16 20:30 11/26/16 20:39 Bedside Urine pH (LAB) 7.0 Bedside Urine Protein (LAB) Trace Bedside Urine Glucose (UA) Negative Bedside Urine Ketones (LAB) Negative Bedside Urine Blood 1+ Bedside Urine Nitrite (LAB) Negative Bedside Urine Leukocyte Esterase (L Negative White Blood Count 9.710^3/ul Red Blood Count 4.1410^6/ul Hemoglobin 12.8g/dl Hematocrit 38.6% Mean Corpuscular Volume 93.2fl Mean Corpuscular Hemoglobin 30.9pg Mean Corpuscular Hemoglobin Concent 33.2g/dl Red Cell Distribution Width 12.3% Platelet Count 42678^3/UL Mean Platelet Volume 12.1fl Neutrophils % 67.2% Lymphocytes % 24.3% Monocytes % 6.5% Eosinophils % 1.4% Basophils % 0.3% Nucleated Red Blood Cells % 0.0/100WBC Neutrophils # 6.510^3/ul Lymphocytes # 2.410^3/ul Monocytes # 0.610^3/ul Eosinophils # 0.110^3/ul Basophils # 0.010^3/ul Nucleated Red Blood Cells # 0.010^3/ul Sodium Level 141mmol/L Potassium Level 4.0mmol/L Chloride Level 107mmol/L Carbon Dioxide Level 26mmol/L Anion Gap 12 Blood Urea Nitrogen 11mg/dl Creatinine 0.79mg/dl Glucose Level 94mg/dl Calcium Level 8.8mg/dl Total Bilirubin 0.2mg/dl Direct Bilirubin 0.00mg/dl Indirect Bilirubin 0.2mg/dl Aspartate Amino Transf (AST/SGOT) 25IU/L Alanine Aminotransferase (ALT/SGPT) 29IU/L Alkaline Phosphatase 103IU/L Total Protein 7.9g/dl Albumin 4.0g/dl Globulin 3.90g/dl Albumin/Globulin Ratio 1.02 Lipase 363U/L Current Medications Medications (Trade) Dose Ordered Sig/Davy Route PRN Reason Start Time Stop Time Status Last Admin Dose Admin Famotidine (Pepcid Iv) 20 mg ONCE STAT IV 11/26/16 19:37 11/26/16 19:39 DC 11/26/16 20:33 Miscellaneous Medication (Gi Cocktail (2)) 40 ml ONCE STAT PO 11/26/16 19:37 11/26/16 19:39 DC 11/26/16 20:33 Procedures/MDM EKG: As interpreted by myself and Dr. Bergman Rate/Rhythm: Normal sinus rhythm with heart rate 64 bpm QRS, ST, T-waves: No changes consistent w/ acute ischemia Impression: No evidence of ischemia or arrhythmia [place] [id number] Radiology Main Line: [phone] DIAGNOSTIC IMAGING REPORT Patient: FELIPA ROWE : 1990 Age: 26 Sex: F [id number] DOS: 11/26/161936 Ordering MD: EMILEE CAMACHO NP Location: [facility] Room/Bed: PROCEDURE: US abdomen right upper quadrant CLINICAL INDICATION: Abdominal pain. TECHNIQUE: Edwards scale and color Doppler ultrasound of the right upper quadrant of the abdomen was performed. COMPARISON: MRCP dated 05/22/[address] dated 05/21/2015. FINDINGS: Pancreas: Visualized portions are unremarkable. Liver: Diffuse increased echogenicity, consistent with fatty infiltration. No focal hepatic lesion. Hepatopedal flow in the main portal vein. Gallbladder: Surgically absent. Common bile duct: 1.2 mm in diameter. Right Kidney: 9.9 cm in length. No nephrolithiasis, hydronephrosis, or mass. Ascites: None. IMPRESSION: 1. Hepatic steatosis. MDM: This is a 26-year-old female presenting to the emergency department with epigastric abdominal pain starting earlier today. Patient rating pain 10/10 and states it feels like a pressure. Patient is afebrile vital signs are stable. No chest pain, shortness of breath or difficulty breathing. No signs or symptoms of respiratory distress. Oxygen saturation 100% on room air with 20 respirations per minute. Labs and urine ordered. IV access obtained per staff development manager. Patient given Pepcid 20 mg IV. Patient given GI cocktail p.o. CBC shows no anemia or infection. CMP shows no significant electrolyte imbalance. Liver enzymes are normal. Lipase is 363. Right upper quadrant abdominal ultrasound reviewed by radiologist as Hepatic steatosis. EKG shows normal sinus rhythm with heart rate 64 bpm. Upon reassessment, patient states pain has improved. Discussed findings with patient. Low suspicion for acute surgical abdomen, obstruction, peritonitis, acute cholangitis, acute cholecystitis or pancreatitis. Differential diagnosis includes but not limited to gastritis, GERD, peptic ulcer disease and hepatic steatosis. Patient is appropriate for outpatient management and can follow up with their PCP in 2-3 days. Patient will be discharged with prescription for Pepcid. Patient instructed to return to ED sooner if pain worsens or is intolerable, high fever or new symptoms such as anorexia, not tolerating PO, severe diarrhea or chest pain. Patient verbalizes understanding. Disclaimer: Inadvertent spelling and grammatical errors are likely due to EHR/ dictation software use and do not reflect on the overall quality of patient care. Also, please note that the electronic time recorded on this note does not necessarily reflect the actual time of the patient encounte Departure Diagnosis: Primary Impression: Abdominal pain Abdominal location: epigastric Qualified Code: R10.13 - Epigastric pain Condition: Stable EMILEE WHEELER NP Nov 26, 2016 20:28
[2016-11-26 20:55] LABS: BASOPHILS % 0.3 % (0.0-2.0); EOSINOPHILS # 0.1 10^3/ul (0.0-0.5); EOSINOPHILS % 1.4 % (0.0-7.0); HEMATOCRIT 38.6 % (37.0-47.0); HEMOGLOBIN 12.8 g/dl (12.0-16.0); LYMPHOCYTES # 2.4 10^3/ul (0.8-2.9); LYMPHOCYTES % 24.3 % (15.0-51.0); MEAN CORPUSCULAR HEMOGLOBIN 30.9 pg (29.0-33.0); MEAN CORPUSCULAR HGB CONC 33.2 g/dl (32.0-37.0); MEAN CORPUSCULAR VOLUME 93.2 fl (82.0-101.0); MEAN PLATELET VOLUME 12.1 fl (7.4-10.4); MONOCYTE # 0.6 10^3/ul (0.3-0.9); MONOCYTES % 6.5 % (0.0-11.0); NEUTROPHIL # 6.5 10^3/ul (1.6-7.5); NEUTROPHILS % 67.2 % (39.0-77.0); PLATELET COUNT 179 10^3/UL (140-415); RED BLOOD COUNT 4.14 10^6/ul (4.20-5.40); RED CELL DISTRIBUTION WIDTH 12.3 % (11.5-14.5); WHITE BLOOD COUNT 9.7 10^3/ul (4.8-10.8)
[2016-11-26 21:31] LABS: ALBUMIN/GLOBULIN RATIO 1.02; BILIRUBIN,INDIRECT 0.2 mg/dl (0-1.1); BILIRUBIN,TOTAL 0.2 mg/dl (0.2-1.3); CALCIUM 8.8 mg/dl (8.4-10.2); CREATININE 0.79 mg/dl (0.44-1.00); TOTAL PROTEIN 7.9 g/dl (6.1-8.1)
--- NOTE | 2016-11-26 21:36 | RADRPT ---
PROCEDURE: US abdomen right upper quadrant CLINICAL INDICATION: Abdominal pain. TECHNIQUE: Edwards scale and color Doppler ultrasound of the right upper quadrant of the abdomen was p erformed. COMPARISON: MRCP dated 05/22/[address] dated 05/21/2015. FINDINGS: Pancreas: Visualized portions are unremarkable. Liver: Diffuse increased echogenicity, consistent with fatty infiltration. No focal hepatic lesion. Hepatopedal flow in the main portal vein. Gallbladder: Surgically absent. Common bile duct: 1.2 mm in diameter. Right Kidney: 9.9 cm in length. No nephrolithiasis, hydronephrosis, or mass. Ascites: None. IMPRESSION: 1. Hepatic steatosis. RPTAT: HLBP .Shiva Jung MD, Date Time Electronically viewed and signed by .Shiva Jung MD, MD on 11/26/2016 21:35 .P/
[2016-11-26] MEDS ORDERED: FAMO-96 PO (21:47)
[2016-11-26 22:08] VITALS: BP 110/65; PULSE 68; RESP 20; TEMP 97.9
== END 2016-11-26 22:09 | disposition home or self-care (01) ==
LOC: FTE 19:11
DX: R10.13 Epigastric pain (principal)
CPT/HCPCS: 36415; 76705; 80053; 81003; 83690; 85025; 96374; Z7502; Z7610

== ENCOUNTER → 2017-01-25 | Emergency (ER) | payer SELFPAY ==
[~2017-01-25] VITALS: Wt 92.1 kg
[~2017-01-25] MED LIST changes: +BELLADONNA/PHENOBARBITAL TAB PO ONE; +FAMOTIDINE 20 MG INJ IV ONE; +FAMOTIDINE 20 MG TAB PO ONE; +OMEP40CA6 PO; +SOD CHLORIDE 0.9% 1,000 ML IV ONE
[2017-01-25 08:05] VITALS: BP 110/68; RESP 16; TEMP 97.9
[2017-01-25 08:07] LABS: BASOPHILS % 0.2 % (0.0-2.0); EOSINOPHILS # 0.2 10^3/ul (0.0-0.5); EOSINOPHILS % 2.3 % (0.0-7.0); HEMATOCRIT 39.7 % (37.0-47.0); HEMOGLOBIN 13.5 g/dl (12.0-16.0); LYMPHOCYTES # 1.8 10^3/ul (0.8-2.9); LYMPHOCYTES % 20.9 % (15.0-51.0); MEAN CORPUSCULAR HEMOGLOBIN 31.2 pg (29.0-33.0); MEAN CORPUSCULAR VOLUME 91.7 fl (82.0-101.0); MEAN PLATELET VOLUME 12.5 fl (7.4-10.4); MONOCYTE # 0.5 10^3/ul (0.3-0.9); MONOCYTES % 5.8 % (0.0-11.0); NEUTROPHILS % 70.6 % (39.0-77.0); PLATELET COUNT 167 10^3/UL (140-415); RED BLOOD COUNT 4.33 10^6/ul (4.20-5.40); WHITE BLOOD COUNT 8.6 10^3/ul (4.8-10.8)
[2017-01-25 08:28] LABS: ALBUMIN/GLOBULIN RATIO 0.97; BILIRUBIN,INDIRECT 0.4 mg/dl (0-1.1); BILIRUBIN,TOTAL 0.4 mg/dl (0.2-1.3); CALCIUM 9.2 mg/dl (8.4-10.2); CREATININE 0.61 mg/dl (0.44-1.00); POTASSIUM 4.4 mmol/L (3.5-5.1); TOTAL PROTEIN 8.1 g/dl (6.1-8.1)
[2017-01-25 09:09] LABS: ADD UMIC YES; UR ASCORBIC ACID NEGATIVE (NEGATIVE); UR BACTERIA FEW /HPF (NONE SEEN); UR BILIRUBIN (Dip) NEGATIVE (NEGATIVE); UR BLOOD (Dip) 2+ mg/dL (NEGATIVE); UR CLARITY CLOUDY (CLEAR); UR COLOR YELLOW (YELLOW); UR GLUCOSE (Dip) NEGATIVE (NEGATIVE); UR KETONES (Dip) NEGATIVE (NEGATIVE); UR LEUKOCYTE ESTERASE (Dip) NEGATIVE Leu/ul (NEGATIVE); UR NITRITE (Dip) NEGATIVE (NEGATIVE); UR RBC 4 /HPF (0-5); UR SPECIFIC GRAVITY (Dip) 1.017 (1.003-1.030); UR SQUAMOUS EPITHELIAL CELL MODERATE /HPF (FEW); UR TOTAL PROTEIN (Dip) NEGATIVE (NEGATIVE); UR UROBILINOGEN (Dip) NEGATIVE (NEGATIVE)
[2017-01-25] MEDS: LIDOCAINE/MYLANTA 40 ML BTL PO ONE ×2 (09:50→09:54)
--- NOTE | 2017-01-25 13:07 | ERD ---
ER Documentation Chief Complaint Chief Complaint epigastric pain (VINCENT RODRIGUEZ NP) HPI 26-year-old female complaining of epigastric abdominal pain since 530 this morning. Patient described pain as knife stabbing. The pain is constant. She took Mylanta at home, without relief. Patient reports history of frequent epigastric pain in the past. She has seen a GI doctor, and had received a upper endoscopy a few years back. But her GI doctor had moved. She is currently in process of obtaining referral again. Denies right lower quadrant pain. Denies vomiting or diarrhea. Denies fever or chills. Patient has a history of cholecystectomy 3 years ago. Denies tobacco use, alcohol on occasion. (VINCENT RODRIGUEZ NP) ROS All systems reviewed and are negative except as per history of present illness. (VINCENT RODRIGUEZ NP) Medications Home Meds Active Scripts Ranitidine Hcl* (Zantac*) 150 Mg Tablet, 150 MG PO BID Y for EPIGASTRIC PAIN, # 30 TAB Prov:VINCENT RODRIGUEZ NP 01/25/17 Omeprazole* (Omeprazole*) 40 Mg Capsule.dr, 40 MG PO DAILY, #30 CAP Prov:VINCENT RODRIGUEZ NP 01/25/17 Famotidine* (Pepcid*) 20 Mg Tablet, 20 MG PO BID for 4 Days, TAB Prov:EMILEE WHEELER NP 11/26/16 Hydrocodone/Acetaminophen ([place] 5-325 Tablet) 1 Each Tablet, 1 TAB PO Q6H Y for PAIN, #7 TAB Prov:BREANNA,VIVIAN 05/18/16 Ondansetron (Ondansetron Odt) 4 Mg Tab.rapdis, 4 MG PO Q6H Y for NAUSEA AND/OR VOMITING, #10 TAB Prov:BREANNA,VIVIAN 05/18/16 Ranitidine Hcl* (Zantac*) 150 Mg Tablet, 150 MG PO BID Y for EPIGASTRIC PAIN, # 30 TAB Prov:BREANNA,VIVIAN 05/18/16 Tramadol HCl (Tramadol HCl) 50 Mg Tablet, 50 MG PO Q6 Y for PAIN, #10 TAB Prov:SEYMOUR FISHER 03/01/16 Tramadol Hcl* (Tramadol* ER) 100 Mg Tab.er.24h, 100 MG PO DAILY, #30 TAB Prov:NATALIASEYMOUR FLORIAN Maria A 03/01/16 Ondansetron Hcl* (Zofran*) 4 Mg Tablet, 4 MG PO Q6H for NAUSEA AND/OR VOMITING, #30 TAB Prov:SEYMOUR FISHER C 03/01/16 Famotidine* (Pepcid*) 20 Mg Tablet, 20 MG PO BID for 14 Days, TAB Prov:NATALIASEYMOUR FLORIAN C 03/01/16 Tramadol HCl (Tramadol HCl) 50 Mg Tablet, 50 MG PO Q6H Y for PAIN, #20 TAB Prov:NICO ACOSTA 05/26/15 Sennosides* (Senokot*) 1 Tab Tab, 2 TAB PO BID for 20 Days, TAB Prov:NICO ACOSTA 05/26/15 Sucralfate* (Carafate* (Pediatric)) 1 Gm/10 Ml Susp, 1 GM PO QID for 30 Days Prov:NICO ACOSTA 05/26/15 Pantoprazole* (Protonix*) 40 Mg Tablet.dr, 40 MG PO BID for 30 Days, TAB Prov:NICO ACOSTA 05/26/15 Ciprofloxacin Hcl* (Ciprofloxacin Hcl*) 500 Mg Tablet, 500 MG PO BID for 7 Days , TAB Prov:NICO ACOSTA 05/26/15 Allergies Allergies: Coded Allergies: No Known Allergy (Unverified , 05/22/16) PMhx/Soc History of Surgery: Yes (cholecytwectomy 2013,caesarian 2010 and 2014) Anesthesia Reaction: No Hx Neurological Disorder: No Hx Respiratory Disorders: No Hx Cardiac Disorders: No Hx Psychiatric Problems: No Hx Miscellaneous Medical Probl: No Hx Alcohol Use: No Hx Substance Use: No Hx Tobacco Use: No Smoking Status: Never smoker (VINCENT RODRIGUEZ NP) Physical Exam Vitals Vital Signs Date Time Temp Pulse Resp B/P Pulse Ox O2 Delivery O2 Flow Rate FiO2 01/25/17 08:05 97.9 16 110/68 96 Room Air 01/25/17 06:43 97.9 70 18 136/65 99 (JORDAN FALCON MD) Physical Exam General: Well-developed, well-nourished, conscious and coherent, in no distress Skin: Warm and dry without rash, good texture and turgor Head: Normocephalic without evidence of trauma Eyes: Sclera and conjunctivae normal; pupils equal, round, and reactive to light; extraocular movements are intact Chest: Normal AP diameter. Good expansion without retractions. Nontender. Lungs are clear to auscultate bilaterally with good tidal volume Heart: Regular rate and rhythm. No murmur, rub, or gallops heard Abdomen: Soft, epigastric tenderness without masses, guarding, or rebound. Bowel sounds are active. No hepatosplenomegaly Back: Without spinal or CVA tenderness Pelvis: Nontender to palpation and stable to compression Extremities: Full range of motion. Good strength bilaterally. No clubbing, cyanosis, or edema. Peripheral pulses are intact. Sensation intact Neuro: Alert and oriented 4, GCS 15. Cranial nerves grossly intact. Motor and sensory exams nonfocal. Moves all extremities. Speech clear. Gait normal (VINCENT RODRIGUEZ NP) Result Diagram: 01/25/17 0755 01/25/17 0755 Results 24 hrs Laboratory Tests Test 01/25/17 07:55 01/25/17 08:38 White Blood Count 8.610^3/ul Red Blood Count 4.3310^6/ul Hemoglobin 13.5g/dl Hematocrit 39.7% Mean Corpuscular Volume 91.7fl Mean Corpuscular Hemoglobin 31.2pg Mean Corpuscular Hemoglobin Concent 34.0g/dl Red Cell Distribution Width 12.0% Platelet Count 03359^3/UL Mean Platelet Volume 12.5fl Neutrophils % 70.6% Lymphocytes % 20.9% Monocytes % 5.8% Eosinophils % 2.3% Basophils % 0.2% Nucleated Red Blood Cells % 0.0/100WBC Neutrophils # 6.010^3/ul Lymphocytes # 1.810^3/ul Monocytes # 0.510^3/ul Eosinophils # 0.210^3/ul Basophils # 0.010^3/ul Nucleated Red Blood Cells # 0.010^3/ul Sodium Level 142mmol/L Potassium Level 4.4mmol/L Chloride Level 107mmol/L Carbon Dioxide Level 26mmol/L Anion Gap 13 Blood Urea Nitrogen 11mg/dl Creatinine 0.61mg/dl Glucose Level 103mg/dl Calcium Level 9.2mg/dl Total Bilirubin 0.4mg/dl Direct Bilirubin 0.00mg/dl Indirect Bilirubin 0.4mg/dl Aspartate Amino Transf (AST/SGOT) 21IU/L Alanine Aminotransferase (ALT/SGPT) 32IU/L Alkaline Phosphatase 109IU/L Total Protein 8.1g/dl Albumin 4.0g/dl Globulin 4.10g/dl Albumin/Globulin Ratio 0.97 Lipase 595U/L Urine Color YELLOW Urine Clarity CLOUDY Urine pH 5.0 Urine Specific [place] 1.017 Urine Ketones NEGATIVEmg/dL Urine Nitrite NEGATIVEmg/dL Urine Bilirubin NEGATIVEmg/dL Urine Urobilinogen NEGATIVEmg/dL Urine Leukocyte Esterase NEGATIVELeu/ul Urine Microscopic RBC 4/HPF Urine Microscopic WBC 6/HPF Urine Squamous Epithelial Cells MODERATE/HPF Urine Bacteria FEW/HPF Urine Hemoglobin 2+mg/dL Urine Glucose NEGATIVEmg/dL Urine Total Protein NEGATIVEmg/dl Current Medications Medications (Trade) Dose Ordered Sig/Davy Route PRN Reason Start Time Stop Time Status Last Admin Dose Admin Famotidine (Pepcid) 20 mg ONCE ONCE PO 01/25/17 08:00 01/25/17 08:00 DC Famotidine 20 mg 20 mg ONCE ONCE IV 01/25/17 08:00 01/25/17 08:01 DC 01/25/17 07:54 Sodium Chloride (NS) 1,000 ml @ 1,000 mls/hr Q1H ONCE IV 01/25/17 10:00 01/25/17 10:59 DC 01/25/17 09:50 Miscellaneous Medication (Gi Cocktail (2)) 40 ml ONCE ONCE PO 01/25/17 10:00 01/25/17 10:01 DC 01/25/17 09:54 Belladonna/ Phenobarbital () 1 tab ONCE ONCE PO 01/25/17 10:00 01/25/17 10:01 DC 01/25/17 09:50 (JORDAN FALCON MD) Procedures/MDM 26-year-old female presented ED with epigastric abdominal pain 1 day. Patient is given Pepcid IV, GI cocktail, and normal saline bolus in the ED. Patient reports feeling better after the medications. CBC and CMP are unremarkable. UA has small amount of hemoglobin in the urine, otherwise unremarkable. Urine test negative. Lipase is slightly elevated at 595, but less than 3 times the normal range. Review of patient's medical record indicated that patient had been seen here multiple times in the last 2 years for similar complaints. Although her lipase is elevated, she had similar values in the past. Low suspicion for acute pancreatitis. I doubt choledocholithiasis, I doubt acute appendicitis, hepatitis. I discussed patient's case with Dr. Falcon, who agrees that patient can be managed on outpatient basis. Advised patient to return 8 hours for close follow -up. Patient also advised to follow-up with her GI specialist. Patient appears well, stable for discharge and outpatient management. Medical decision making shared with patient and family. Education provided to patient and family. Patient and family expressed understanding of the plan. Medications on discharge: Omeprazole, ranitidine. Follow-up: Primary care provider in 2-3 days or return to ED if worse. Disclaimer: Inadvertent spelling and grammatical errors are likely due to EHR/ dictation software use and do not reflect on the overall quality of patient care. Also, please note that the electronic time recorded on this note does not necessarily reflect the actual time of the patient encounter. (VINCENT RODRIGUEZ NP) Attending addendum: I agree with plan for outpatient management with bland diet advanced slowly and strict return precautions. The patient has recurrent episodes of similar pain with slightly elevated lipase. I suspect she may have mild pancreatitis, but has no sign of an acute surgical condition. (JORDAN FALCON MD) Departure Diagnosis: Primary Impression: Epigastric pain Condition: Stable Patient Instructions: Epigastric Pain (Uncertain Cause) Referrals: CLAUDIO GARZA (PCP) Additional Instructions: Call your primary care doctor TOMORROW for an appointment during the next 2-3 days.See the doctor sooner or return here if your condition worsens before your appointment time. VINCENT RODRIGUEZ NP Jan 25, 2017 13:02 JORDAN FALCON MD Jan 25, 2017 14:10
== END | disposition home or self-care (01) ==
LOC: FTE 06:39
DX: R10.13 Epigastric pain (principal)
CPT/HCPCS: 80053; 81001; 83690; 85025; J7030; 36415; 96374

== ENCOUNTER 2017-02-15 16:59 | Emergency (ER) | END 2017-02-15 23:26 | disposition home or self-care (01) ==

== ENCOUNTER 2017-10-16 23:14 | Emergency (ER) | END 2017-10-17 02:10 | disposition home or self-care (01) ==